=== PATIENT | female | born 1960 | race Caucasian/White ===

== ENCOUNTER 2017-06-11 12:33 | Day surgery (SDC) | payer OTHER ==
[~2017-06-11] VITALS: Ht 165.1 cm; Wt 77.8 kg
[~2017-06-11 12:33] MED LIST: ASPI81CH PO; ATOR10; DIPH50; HYDCHL25 PO; LISHYD2012 PO; LISI10 PO; LISI5 PO; LORA1 PO; ONDA8ODT MM; POTA10T PO; POTCHL20ER PO; RANI150; RANI150 PO; ZESTORETIC 20-121 E1 PO
== END 2017-06-11 16:41 | disposition home or self-care (01) ==
LOC: ORSCSDS 12:33
DX: Z12.11 Encounter for screening for malignant neoplasm of colon (principal); Z80.0 Family history of malignant neoplasm of digestive organs; D12.2 Benign neoplasm of ascending colon; D12.3 Benign neoplasm of transverse colon; D12.4 Benign neoplasm of descending colon; D12.5 Benign neoplasm of sigmoid colon; K62.1 Rectal polyp; K57.30 Diverticulosis of large intestine without perforation or abscess without bleeding; K64.8 Other hemorrhoids; I10 Essential (primary) hypertension; F17.210 Nicotine dependence, cigarettes, uncomplicated; Z79.899 Other long term (current) drug therapy
CPT/HCPCS: 88305; J1980

== ENCOUNTER → 2018-05-14 | Outpatient (CLI) | payer OTHER | END | disposition home or self-care (01) | LOC: PLD 07:40 → LAB SHORT 07:40 | DX: D48.5 Neoplasm of uncertain behavior of skin (principal) | CPT/HCPCS: 88305 ==

== ENCOUNTER → 2018-07-16 | Outpatient (CLI) | payer OTHER ==
[2018-07-18 15:07] LABS: HPV 16 Negative (Negative); HPV 18 Negative (Negative); HPV OTHER HR TYPES Negative (Negative)
== END | disposition home or self-care (01) ==
LOC: LAB 14:25 → LAB SHORT 14:25
PROVIDERS: Obstetrics & Gynecology
DX: Z01.419 Encounter for gynecological examination (general) (routine) without abnormal findings (principal)
CPT/HCPCS: 87624; G0123

== ENCOUNTER 2018-09-24 09:03 | Day surgery (SDC) | payer OTHER ==
[~2018-09-24] VITALS: Ht 165.1 cm; Wt 80.9 kg
[~2018-09-24 09:03] MED LIST changes: +ACID REDUCER 1150 MG PO; +Aspirin EC81 MG
[2018-09-24] MEDS ORDERED: BENADRYL25 MG PO (10:03)
[2018-09-24] MEDS ORDERED: DIPH12.5EL PO (10:03)
--- NOTE | 2018-09-24 10:05 | NUR ---
09/24/18 Ramiro5 Viridiana Hargrove CALL LIGHT WITHIN REACH
== END 2018-09-24 11:53 | disposition home or self-care (01) ==
LOC: ORSCSDS 09:03
PROVIDERS: Internal Medicine Gastroenterology
PROC: 0DBK8ZX Excision of Ascending Colon, Via Natural or Artificial Opening Endoscopic, Diagnostic (ICD-10-PCS; principal; 2018-09-24 10:30)
PROC: 0DBN8ZX Excision of Sigmoid Colon, Via Natural or Artificial Opening Endoscopic, Diagnostic (ICD-10-PCS; principal; 2018-09-24 10:30)
PROC: 0DBM8ZX Excision of Descending Colon, Via Natural or Artificial Opening Endoscopic, Diagnostic (ICD-10-PCS; principal; 2018-09-24 10:30)
DX: Z86.010 Personal history of colon polyps (principal); Z80.0 Family history of malignant neoplasm of digestive organs; D12.2 Benign neoplasm of ascending colon; D12.4 Benign neoplasm of descending colon; K63.5 Polyp of colon; K62.1 Rectal polyp; I10 Essential (primary) hypertension; E78.5 Hyperlipidemia, unspecified; F17.210 Nicotine dependence, cigarettes, uncomplicated
CPT/HCPCS: 88305; J2704; J7120

== ENCOUNTER 2019-09-04 18:21 | Emergency (ER) | payer OTHER ==
[~2019-09-04] VITALS: Ht 175.3 cm; Wt 78.0 kg
[~2019-09-04 18:21] MED LIST changes: +BENADRYL25 MG PO; +DIPH12.5EL PO
== END 2019-09-04 20:16 | disposition home or self-care (01) ==
LOC: ER 18:21
DX: S86.912A Strain of unspecified muscle(s) and tendon(s) at lower leg level, left leg, initial encounter (principal); I10 Essential (primary) hypertension; Z79.899 Other long term (current) drug therapy; X58.XXXA Exposure to other specified factors, initial encounter
CPT/HCPCS: 93005; 93010; 93971; 99284-25

== ENCOUNTER → 2022-02-02 | Outpatient (CLI) | payer OTHER | END | disposition home or self-care (01) | LOC: LAB SHORT 19:10 → LAB 19:10 | DX: R30.0 Dysuria (principal) | CPT/HCPCS: 87077; 87086; 87186 ==